=== PATIENT | female | born 1955 | race Caucasian/White ===

== ENCOUNTER 2017-03-18 14:51 | Emergency (ER) | payer BC ==
[2017-03-18] MEDS ORDERED: TYLENOL 325 MG PO ONE (15:10)
[2017-03-18] MEDS ORDERED: Sodium Chloride 0.9% 1000 ML 1,000 ML IV SCH (15:15)
[2017-03-18] MEDS ORDERED: TYLENOL 325 MG ONE ×2 (15:25→17:22)
[2017-03-18 15:33] LABS: BASOPHIL % 0.3 % (0.0-0.4); Eosinophil % 2.2 % (0.00-5.0); Granulocytes % 54.5 % (36.0-66.0); Lymphocytes % 33.7 % (24.0-44.0); Mean Cell Volume 86.9 fl (78-100); Mean Corpuscular Hemoglobin 29.6 pg (26-32); Monocytes % 9.3 % (0.0-12.0); Platelet Count 298 K/mm3 (150-450); Red Blood Count 4.73 M/mm3 (4.1-5.4); Red Cell Distribution Width 12.5 % (11.5-14.0); White Blood Count 6.9 K/mm3 (4.0-10.5)
[2017-03-18] MEDS ORDERED: Zofran 4 MG/2 ML VIAL ONE ×2 (15:43→17:22)
[2017-03-18] MEDS ORDERED: Zofran 4 MG/2 ML VIAL IV ONE ×2 (15:43→17:20)
--- NOTE | 2017-03-18 15:45 | ERPHSYRPT ---
- History of Present Illness Time Seen by Provider: 03/18/17 14:53 Source: patient, family, EMS Exam Limitations: clinical condition Patient Subjective Stated Complaint: twisted left ankle and fell striking head on kitchen island. now has h/a and is nauseated. Triage Nursing Assessment: ambulated to room per self. skin cool,clammy, pale. resp nonlabored. no obvious injuries noted at this time. Physician History: patient twisted her ankle and fell striking her head on the arm of a chair; no loc but dazed, dizzy wiht N&V and RAGLAND post left occiput; got into a chair by self but still continues symptoms but improved; no neck pain or other injury; ankle doesn't hurt; good memory of event; CVA 2 months ago; no bleed by hx; in [place] and doing well Occurred: just prior to arrival Severity: severe Head Injury Location: occipital (post superior) Method of Injury: fell (striking head on hard arm of chair) Loss of Consciousness: dazed Associated Symptoms: nausea, vomiting, headaches, other (dizzy) Allergies/Adverse Reactions: Penicillins Allergy (Verified 03/18/17 15:04) Home Medications: Amlodipine Besylate 5 mg [Norvasc 5 mg] 5 mg PO HS 04/10/13 [History] Armodafinil [Nuvigil] 150 mg PO DIRECTIONS UNKNOWN 04/10/13 [History] Clonidine HCl 0.1 mg [Catapres 0.1 MG] 0.25 mg PO TID 04/10/13 [History] Doxazosin Mesylate 1 mg PO HS 04/10/13 [History] Duloxetine HCl 30 mg [Cymbalta 30 MG Capsule] 60 mg PO HS 04/10/13 [ History] HydrALAzine HCL 25 MG TAB [Apresoline 25 MG TABLET] 25 mg PO BID 04/10/13 [History] Levothyroxine Sodium 88 Mcg [Synthroid 88 Mcg] 88 mcg PO DAILY 04/10/13 [ History] Lisinopril/Hydrochlorothiazide [Lisinopril-Hctz 20-12.5 mg Tab] 1 each PO BID [History] Perphenazine/Amitriptyline HCl [Perphen-Amitrip 2 mg-10 mg Tab] 1 each PO DIRECTIONS UNKNOWN 04/10/13 [History] Potassium Chloride 10 Meq Tab* [Klor Con 10 MEQ] 10 meq PO HS 04/10/13 [ History] Hx Tetanus, Diphtheria Vaccination/Date Given: No Hx Influenza Vaccination/Date Given: Yes Hx Pneumococcal Vaccination/Date Given: Yes - Review of Systems Constitutional: Other (nauseated with RAGLAND) Eyes: No Symptoms Ears, Nose, & Throat: No Symptoms Respiratory: No Cough, No Dyspnea, No Wheezing Cardiac: No Chest Pain, No Palpitations, No Syncope Abdominal/Gastrointestinal: Nausea, Vomiting, No Abdominal Pain, No Diarrhea, No Constipation Genitourinary Symptoms: No Dysuria, No Frequency, No Hematuria, No Hesitancy, No Incontinence Musculoskeletal: Fall, Injury (head) Skin: No Symptoms Neurological: Dizziness, Headache, No Seizure Psychological: No Symptoms Endocrine: No Symptoms Hematologic/Lymphatic: Easy Bruising, Other (on blood thinner) Immunological/Allergic: No Symptoms - Past Medical History Pertinent Past Medical History: Yes Neurological History: Stroke, TIA ENT History: No Pertinent History Cardiac History: High Cholesterol, Hypertension, Other Respiratory History: Asthma Endocrine Medical History: Hypothyroidism Musculoskeletal History: Arthritis GI Medical History: No Pertinent History History: No Pertinent History Psycho-Social History: No Pertinent History Female Reproductive Disorders: No Pertinent History Other Medical History: Pt has an internal recorder in the chest monitoring heart. Ablasion in the heart "years ago". - Past Surgical History Past Surgical History: Yes Neuro Surgical History: No Pertinent History Cardiac: No Pertinent History Respiratory: No Pertinent History Gastrointestinal: No Pertinent History Genitourinary: No Pertinent History Female Surgical History: Hysterectomy Other Surgical History: HEART ABLASION, - Social History Smoking Status: Never smoker Exposure to second hand smoke: No Alcohol Use: None Drug Use: none Patient Lives Alone: Yes Significant Family History: no pertinent family hx - Female History Hx Now: No - Nursing Vital Signs Nursing Vital Signs: Initial Vital Signs Temperature 97.5 F Pulse Rate 67 Respiratory Rate 16 Blood Pressure [] 151/66 Pain Intensity 5 - Sarbjit Coma Score Best Eye Response (Sarbjit): (4) open spontaneously Best Verbal Response (Sarbjit): (5) oriented Best Motor Response (Sarbjit): (6) obeys commands Kimberly Total: 15 - Physical Exam General Appearance: severe distress, alert Head Injury: contusions, tenderness (post superior occiput), No active bleeding , No Ann's Sign, No raccoon eyes Eye Exam: bilateral eye: normal inspection, PERRL, EOMI ENT Exam: airway nml, nml ext.inspection, No evidence of ENT injury, No dental injury, No hemotympanum, No clotted nasal blood, No malocclusion Neck Exam: supple, trachea midline, full range of motion, normal alignment, normal inspection Cardiovascular/Respiratory Exam: chest non-tender, normal breath sounds, regular rate/rhythm, heart sounds normal, no ecchymosis, no JVD, no M/R/G, no respiratory distress Gastrointestinal/Abdominal Exam: soft, non tender, no distention, no mass, no guarding, no ecchymosis, no organomegaly, No rebound Pelvic Exam: deferred Rectal Exam: deferred Back Exam: normal inspection, normal range of motion, No CVA tenderness, No vertebral tenderness Extremity Exam: non-tender, normal range of motion, normal inspection, normal capillary refill, no calf tenderness, no pedal edema Mental Status Exam: alert, oriented x 3, 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 Exam: normal hearing, normal speech, PERRL Coordination/Gait Exam: normal finger to nose, negative Romberg's sign Motor/Sensory Exam: no motor deficit, no sensory deficit, no pronator drift, CN II-XII intact DTR Exam: knee (R): 4+, knee (L): 4+ Skin Exam: normal color, warm, dry, No rash, No petechiae SpO2 Interpretation: normal SpO2: 97 Oxygen Delivery: Room Air - Course Nursing assessment & vital signs reviewed: Yes - CT Exams Head CT Interpretation: Tele-radiologist Report, Other (acute sub dural bleed 1mm left temporal/parietal w 4-5 mm midline shift) Ordered Tests: Active Orders 24 hr Category Date Time 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 03/18/17 15:10 Active IV Insertion STAT Care 03/18/17 15:10 Active IV Insertion-2nd Peripheral STAT Care 03/18/17 16:08 Active Pulse Oximetry (ED) STAT Care 03/18/17 15:10 Active HEAD WITHOUT CONTRAST [CT] Stat Exams 03/18/17 15:10 Completed BMP Stat Lab 03/18/17 15:27 Completed CBC W DIFF Stat Lab 03/18/17 15:27 Completed PROTIME WITH INR Stat Lab 03/18/17 15:27 Completed Medication Summary Generic Name Dose Route Start Last Admin Trade Name Elida PRN Reason Stop Dose Admin Sodium Chloride 1,000 mls @ 50 mls/hr 03/18/17 15:15 03/18/17 15:28 Sodium Chloride 0.9% 1000 Ml IV 04/17/17 15:14 50 mls/hr .Q20H ELIECER Administration Nicardipine HCl 25 mg/ Sodium 250 mls @ 50 mls/hr 03/18/17 16:08 03/18/17 16: 23 Chloride IV 04/17/17 16:07 50 mls/hr .Q5H PRN Administration TITRATE FOR BLOOD PRESSURE Discontinued Medications Generic Name Dose Route Start Last Admin Trade Name Elida PRN Reason Stop Dose Admin Acetaminophen 650 mg 03/18/17 15:10 03/18/17 15:27 Tylenol 325 Mg PO 03/18/17 15:11 650 mg STAT ONE Administration Acetaminophen Confirm 03/18/17 15:25 Tylenol 325 Mg Administered 03/18/17 15:26 Dose 650 mg .ROUTE .STK-MED ONE Acetaminophen 650 mg 03/18/17 17:20 03/18/17 17:23 Tylenol 325 Mg PO 03/18/17 17:21 650 mg STAT STA Administration Acetaminophen Confirm 03/18/17 17:22 Tylenol 325 Mg Administered 03/18/17 17:23 Dose 650 mg .ROUTE .STK-MED ONE Levetiracetam 1,000 mg/ 110 mls @ 220 mls/hr 03/18/17 16:13 03/18/17 16:15 Dextrose IV 03/18/17 16:42 220 mls/hr STAT ONE Administration Dextrose Confirm 03/18/17 16:14 D5w 100ml Mini Bag 100 Ml Administered 03/18/17 16:15 Dose 100 mls @ ud IV .STK-MED ONE Labetalol HCl Confirm 03/18/17 15:50 Trandate 20 Mg/5 Ml Syringe Administered 03/18/17 15:51 Dose 20 mg IV .STK-MED ONE Labetalol HCl 20 mg 03/18/17 16:01 03/18/17 15:55 Trandate 100mg/20 Ml Mdv IV 03/18/17 16:02 20 mg STAT ONE Administration Levetiracetam Confirm 03/18/17 16:14 Keppra 500 Mg/5 Ml Administered 03/18/17 16:15 Dose 1,000 mg .ROUTE .STK-MED ONE Ondansetron HCl 4 mg 03/18/17 15:43 03/18/17 16:23 Zofran 4 Mg/2 Ml Vial IV 03/18/17 15:44 4 mg STAT ONE Administration Ondansetron HCl Confirm 03/18/17 15:43 Zofran 4 Mg/2 Ml Vial Administered 03/18/17 15:44 Dose 4 mg .ROUTE .STK-MED ONE Ondansetron HCl 4 mg 03/18/17 17:20 03/18/17 17:24 Zofran 4 Mg/2 Ml Vial IV 03/18/17 17:21 4 mg STAT ONE Administration Ondansetron HCl Confirm 03/18/17 17:22 Zofran 4 Mg/2 Ml Vial Administered 03/18/17 17:23 Dose 4 mg .ROUTE .STK-MED ONE Potassium Chloride 40 meq 03/18/17 16:21 03/18/17 16:22 Klor Con 10 Meq PO 03/18/17 16:22 40 meq STAT ONE Administration Potassium Chloride Confirm 03/18/17 16:21 Klor Con 10 Meq Administered 03/18/17 16:22 Dose 40 meq PO .STK-MED ONE Lab/Rad Data: Laboratory Result Diagrams 03/18/17 15:27 03/18/17 15:27 Laboratory Results 03/18/17 03/18/17 03/18/17 Range/Units 15:27 15:27 15:27 WBC 6.9 (4.0-10.5) K/mm3 RBC 4.73 (4.1-5.4) M/mm3 Hgb 14.0 (12.0-16.0) gm/dl Hct 41.1 (35-47) % MCV 86.9 (78-100) fl MCH 29.6 (26-32) pg MCHC 34.1 (32-36) g/dl RDW 12.5 (11.5-14.0) % Plt Count 298 (150-450) K/mm3 MPV 11.0 H (6-9.5) fl Gran % 54.5 (36.0-66.0) % Lymphocytes % 33.7 (24.0-44.0) % Monocytes % 9.3 (0.0-12.0) % Eosinophils % 2.2 (0.00-5.0) % Basophils % 0.3 (0.0-0.4) % Basophils # 0.02 (0-0.4) INR 0.98 (0.8-3.0) Sodium 128 L (136-145) mEq/L Potassium 2.7 L* (3.5-5.1) mEq/L Chloride 90 L (98-107) mEq/L Carbon Dioxide 27.6 (21-32) mEq/L Anion Gap 12.7 (5-15) MEQ/L BUN 19 (9-20) mg/dL Creatinine 0.92 (0.55-1.30) mg/dl Estimated GFR > 60 ML/MIN Glucose 133 H (70-110) MG/DL Calcium 9.5 (8.5-10.1) mg/dL reviewed - Progress Progress: improved, re-examined (after CT) Progress Note: 03/18/17 15:44 RAGLAND continues; N&V returned will give zofran; CT shows acute Temporal parietal bleed 03/18/17 16:00 family at bedside; CT shows acute bleed Left temporal / parietal; NO neurosugery in this ; constacted Gnosticism - no ICU beds; will contact [facility] [place];VS show increased BP; gave Labatalol IV BP improved; will start on CArdene drip and mointor; family informed 03/18/17 16:21 Dr Dickson at [facility] consulted and accepted the patient for transfer to the ED at 1610 pm; BP now 160 systolic which is desired BP; starting a Cardene drip prophylaxis and will give 1 gram of Keppra prophylactically as requested by NS; calling for transfer support now; Family kept informed; NO change in exam; N&V contolled with meds; RAGLAND improving; will give some K+ as low at 2.7 and continue to monitor 03/18/17 17:05 patient received the Keppra and K+ as well as Cardene drip started; BP controlled; symptoms resolved; family at bedside; questions answered; family and patinet informed of transfer arrangements and results; awaiting arrival of EMS for transfer 03/18/17 17:30 EMS here for transfer; report given Discussed with : Other (Dr Dickson Neurosurgeon at [facility] accepted the patient for transfer at 1610) Will see patient in: ED (at [facility] at [address] [place] [address]) Counseled pt/family regarding: lab results, diagnosis, need for follow-up, rad results - Departure Time of Disposition: 17:31 Departure Disposition: Transfer (to [facility] ED [address] [place] [address]) Clinical Impression: Acute head injury, Nontraumatic acute subdural hemorrhage, Hypokalemia, Hypertension Condition: Critical Critical Care Time: Yes Critical Care Time(excluding separately billable procedures): 30-74 minutes Referrals: PIPE REYNOSO [Primary Care Provider] - Additional Instructions: transfer by EMS to [address] care of Dr Dickson, accepting physician
[2017-03-18] MEDS ORDERED: TRANDATE 20 MG/5 ML SYRINGE IV ONE (15:50)
[2017-03-18 15:54] LABS: ANION GAP 12.7 MEQ/L (5-15); BLOOD UREA NITROGEN 19 mg/dL (9-20); CHLORIDE 90 mEq/L (98-107); Carbon Dioxide 27.6 mEq/L (21-32); Glucose 133 MG/DL (70-110); SODIUM 128 mEq/L (136-145)
[2017-03-18] MEDS ORDERED: TRANDATE 100MG/20 ML MDV IV ONE (16:01)
--- NOTE | 2017-03-18 16:02 | XRAY ---
Indication: Left head injury following fall. Patient on Plavix. Multiple contiguous axial images obtained through the head without contrast. Comparison: March 04, 2010. There is now a left frontal temporal parietal acute subdural hematoma measuring at least 10 mm in thickness. There is mild mass effect on the adjacent brain parenchyma as well as 4-5 mm midline shift. Fourth ventricle is midline. No hydrocephalus. Bony calvarium intact. There is mild mucosal thickening of the visualized left maxillary sinus. Partial opacification of the right mastoid air cells. Impression: 1. Left frontal temporal parietal acute subdural hematoma as detailed. 2. No fracture. 3. Minimal left maxillary sinus disease. Partial opacification of the right mastoid air cells presumed inflammatory. Comment: I called the ER to give telephone report. Ordering clinician is aware of the bleed and was discussing the case with a neurosurgeon. CTDI 49.85
[2017-03-18 16:03] LABS: Potassium 2.7 mEq/L (3.5-5.1)
[2017-03-18] MEDS ORDERED: CARDIZEM DRIP 100 MG/100 ML D5W 100 ML IV PRN (16:03)
[2017-03-18] MEDS ORDERED: CARDIZEM DRIP 100 MG/100 ML D5W 100 ML IV ONE (16:04)
[2017-03-18] MEDS ORDERED: CARDENE 25 MG/10 ML*** 25 MG in Sodium Chloride 0.9% 250 ML 240 ML IV PRN (16:08)
[2017-03-18] MEDS ORDERED: Keppra 500 MG/5 ML*** 1,000 MG in D5w 100ML Mini Bag 100 ML 100 ML IV ONE (16:13)
[2017-03-18 16:14] LABS: INR 0.98 (0.8-3.0)
[2017-03-18] MEDS ORDERED: Keppra 500 MG/5 ML ONE (16:14)
[2017-03-18] MEDS ORDERED: D5w 100ML Mini Bag 100 ML 100 ML IV ONE (16:14)
[2017-03-18] MEDS ORDERED: Klor Con 10 MEQ PO ONE ×2 (16:21)
[2017-03-18 16:54] VITALS: PULSE 67
[2017-03-18 17:09] VITALS: O2SAT 97
[2017-03-18] MEDS ORDERED: TYLENOL 325 MG PO STA (17:20)
[2017-03-18 17:36] VITALS: BP 143/67
== END 2017-03-18 17:39 | disposition short-term general hospital (02) ==
LOC: ED 14:51
DX: I62.00 Nontraumatic subdural hemorrhage, unspecified (principal); E87.6 Hypokalemia; I10 Essential (primary) hypertension; R51 Headache; R11.2 Nausea with vomiting, unspecified; X50.0XXA Overexertion from strenuous movement or load, initial encounter; W01.198A Fall on same level from slipping, tripping and stumbling with subsequent striking against other object, initial encounter; R42 Dizziness and giddiness
CPT/HCPCS: 36000; 36415; 51702; 70450; 80048; 85025; 85610; 93041; 96360; 96361; 96365; 96367; 96374; 96375; 96376; 99285; 99291; 99292; J1953; J2405; A9270-GY